=== PATIENT | female | born 1945 | race Caucasian/White ===

== ENCOUNTER 2017-01-02 06:46 | Day surgery (SDC) | payer OTHER, BC ==
[2017-01-01 11:45] VITALS: BMI 35.2
[~2017-01-02 06:46] MED LIST: TOBRAMYCIN/DEXAMETHASONE OPHTH. OINTMENT 1 TUBE TP ONE
[2017-01-02 07:03] VITALS: TEMP 97.7
[2017-01-02] MEDS ORDERED: PHENYLEPHRINE 2.5% OPHTH SOLN 15 ML BOTTLE ONE (07:16)
[2017-01-02] MEDS ORDERED: MOXIFLOXACIN HCL 0.5% OPHTHALMIC 3 ML BOTTLE ONE (07:16)
[2017-01-02] MEDS ORDERED: TROPICAMIDE 1% OPHTH SOLN 15 ML BOTTLE ONE (07:16)
[2017-01-02] MEDS ORDERED: CYCLOPENTOLATE HCL 1% OPHTH SOLN 2 ML BOTTLE ONE (07:16)
[2017-01-02] MEDS ORDERED: TOBRAMYCIN/DEXAMETHASONE OPHTH. OINTMENT 1 TUBE ONE (07:18)
[2017-01-02] MEDS ORDERED: EPINEPHrine/PF 1 MG/1 ML (1:1,000) AMPULE ONE (07:19)
[2017-01-02] MEDS ORDERED: LIDOCAINE HCL/PF 2% SDV 5ML VIAL ONE ×2 (07:19→07:59)
[2017-01-02] MEDS ORDERED: TETRACAINE 0.5% OPHTH SOLN 2 ML BOTTLE ONE (07:19)
[2017-01-02] MEDS ORDERED: POVIDONE-IODINE 5% OPHTHALMIC PREP 30 ML SOLUTION ONE (07:19)
[2017-01-02] MEDS ORDERED: BUPIVACAINE HCL/PF 0.75% 10 ML VIAL ONE (07:19)
[2017-01-02] MEDS: PHENYLEPHRINE 2.5% OPHTH SOLN 15 ML BOTTLE OP SCH ×3 (07:21→07:36)
[2017-01-02] MEDS: MOXIFLOXACIN HCL 0.5% OPHTHALMIC 3 ML BOTTLE OP SCH ×3 (07:21→07:36)
[2017-01-02] MEDS: TROPICAMIDE 1% OPHTH SOLN 15 ML BOTTLE OP SCH ×3 (07:21→07:36)
[2017-01-02] MEDS: CYCLOPENTOLATE HCL 1% OPHTH SOLN 2 ML BOTTLE OP SCH ×3 (07:21→07:35)
[2017-01-02] MEDS ORDERED: TETRACAINE 0.5% HCL 0.6ML DROPPER.BOTTLE TP ONE (07:54)
[2017-01-02] MEDS ORDERED: MIDAZOLAM HCL 2 MG/2 ML SINGLE DOSE VIAL ONE (07:59)
[2017-01-02] MEDS ORDERED: PROPOFOL 20 ML ONE (07:59)
[2017-01-02] MEDS ORDERED: BUPIVACAINE HCL/PF 0.75% 10 ML VIAL RB ONE (08:06)
[2017-01-02] MEDS ORDERED: LIDOCAINE HCL 1% PRESERVATIVE FREE - 30ML VIAL IO ONE ×2 (08:15)
[2017-01-02] MEDS ORDERED: CHONDROITIN SU A/HYALUR SOD 1 KIT IO ONE (08:19)
[2017-01-02] MEDS ORDERED: TOBRAMYCIN/DEXAMETHASONE OPHTH. OINTMENT 1 TUBE TP ONE (08:46)
--- NOTE | 2017-01-02 08:59 | HP ---
History & Physical Update - History History: No Change - Physical Physical: No Change - Assessment Assessment: No Change - Plan Plan: No Change
[2017-01-02 10:04] VITALS: BP 139/60; PULSE 69
--- NOTE | 2017-01-02 11:19 | OP ---
DATE OF OPERATION: 01/02/2017 SURGEON: Juan Medrano MD PREOPERATIVE DIAGNOSIS: Cataract, left eye. OPERATION: Phacoemulsification and intraocular lens implantation, left eye. POSTOPERATIVE DIAGNOSIS: Cataract, left eye. ANESTHESIA: Local with intravenous sedation. COMPLICATIONS: None. BLOOD LOSS: None. SPECIMEN: None. BRIEF HISTORY: The patient is a 71-year-old woman with a past medical history of hypertension, who presented with decreased vision in the left eye down to 20/70- due to a dense 2+ to 3+ nuclear sclerotic lens. After the risks, benefits, and alternatives to cataract surgery were discussed with the patient, she consented to surgery for the left eye. DESCRIPTION OF PROCEDURE: The patient was brought to the operating room and administered retrobulbar block after receiving intravenous sedation. She was then prepped and draped in the usual sterile fashion, and an eyelid speculum was inserted in the left eye. A paracentesis was made, and the anterior chamber was inflated with nonpreserved lidocaine. This was followed by injection of Viscoat. A groove was made in the superotemporal clear cornea which was tunneled forward with a crescent blade. The anterior chamber was entered with a 2.75 keratome. The cystotome was used to make an incision in the center of the capsule, and a continuous curvilinear capsulorrhexis was created. The lens was hydrodissected until it was found to rotate freely within the capsular bag. At this point, there was noted to be some iris prolapse. However, it was limited and did not continue during phacoemulsification. Phacoemulsification was then used to remove the lens in its entirety. Irrigation and aspiration were used to remove residual cortical material. The anterior chamber and capsular bag were reinflated with Provisc, and a 21.5-diopter SN60WF AcrySof intraocular lens was injected into the capsular bag using the Cayuta injector. The lens was dialed into place using a Sinskey hook. Irrigation and aspiration were used to remove residual Viscoelastic. The wound was stromally hydrated until it was found to be watertight. However, the wound continued to not be watertight. One 10-0 nylon suture was placed to the wound. The wound was then found to be watertight, and the eye was at an appropriate pressure. The eyelid speculum was removed from the eye, and TobraDex ointment and a patch and shield were placed over the left eye. The patient was transferred to the recovery room in stable condition and will follow up tomorrow. JUAN MEDRANO M.D. [id number]
== END 2017-01-02 10:04 | disposition home or self-care (01) ==
LOC: JASU-SURG 06:46
PROVIDERS: ATTEND Ophthalmology
PROC: 08RK3JZ Replacement of Left Lens with Synthetic Substitute, Percutaneous Approach (ICD-10-PCS; principal; 2017-01-02 08:00)
DX: H25.12 Age-related nuclear cataract, left eye (principal)

== ENCOUNTER 2017-01-19 08:39 | Day surgery (SDC) | payer OTHER, BC ==
[2017-01-19 08:13] VITALS: BMI 39.4
[2017-01-19] MEDS ORDERED: LIDOCAINE HCL/PF 2% SDV 5ML VIAL ONE (09:24)
[2017-01-19] MEDS ORDERED: PROPOFOL 20 ML ONE ×2 (09:24)
[2017-01-19 10:20] VITALS: TEMP 97.8
[2017-01-19 11:39] VITALS: BP 146/79; PULSE 81
--- NOTE | 2017-01-22 11:33 | PATH ---
Surgical Pathology Report Patient Name: ETHAN VELA [facility]. Rec. #: [id number] /Age/Gender: 1945 (Age: 71) / F Account: [id number] Location: U-ENDOSCOPY Taken: 01/19/2017 Received: 01/19/2017 Reported: 01/22/2017 Physicians: Ericka Green M.D. Specimen(s) Received A: BX DUODENUM B: BX DUODENUM BULB POLYP C: BX ANTRUM D: BX DISTAL MID ESOPHAGUS E: BX SIGMOID POLYP F: BX DESCENDING COLON POLYP Clinical History Occult bleeding, anemia, abdominal pain Sliding hiatal hernia, duodenal bulb polyp, colon polyps, hemorrhoids Final Diagnosis A. DUODENUM, SECOND PORTION, BIOPSY: DUODENAL MUCOSA WITH CHRONIC INFLAMMATION. NO HISTOLOGIC EVIDENCE OF GLUTEN SENSITIVE ENTEROPATHY (CELIAC DISEASE). B. DUODENAL BULB, POLYP, BIOPSY: POLYPOID DUODENAL MUCOSA WITH CHRONIC INFLAMMATION AND EXTENSIVE GASTRIC METAPLASIA MOST CONSISTENT WITH INFLAMED GASTRIC HETEROTOPIA. NEGATIVE FOR DYSPLASIA/ADENOMA. C. STOMACH, ANTRUM, BIOPSY: GASTRIC OXYNTIC MUCOSA WITH MILD CHRONIC GASTRITIS. IMMUNOSTAIN FOR H. PYLORI IS NEGATIVE FOR ORGANISMS. D. ESOPHAGUS, DISTAL/MID, BIOPSY: SQUAMOUS EPITHELIUM WITH CHRONIC INFLAMMATION AND REFLUX TYPE CHANGES. COLUMNAR EPITHELIUM PRESENT (NO INTESTINAL METAPLASIA/MCCORMICK'S ESOPHAGUS IDENTIFIED). NO EVIDENCE OF EOSINOPHILIC ESOPHAGITIS. E. COLON, SIGMOID, BIOPSY: INFLAMED HYPERPLASTIC POLYP. F. COLON, DESCENDING, POLYP, BIOPSY: CONSISTENT WITH INFLAMMATORY/POSTINFLAMMATORY TYPE POLYP. Electronically Signed Sedrick Bravo M.D. Gross Description A. Received in formalin, labeled "biopsy second portion of duodenum" are 3 schaffer, irregular portions of soft tissue measuring 0.2-0.3 cm in greatest dimension. The specimens are submitted in toto in one cassette. B. Received in formalin, labeled "biopsy duodenal bulb polyp" is a schaffer, irregular portion of soft tissue measuring 0.2 cm in greatest dimension. The specimen is submitted in toto in one cassette. C. Received in formalin, labeled "biopsy antrum" are 3 schaffer, irregular portions of soft tissue measuring 0.2-0.5 cm in greatest dimension. The specimens are submitted in toto in one cassette. D. Received in formalin, labeled "biopsy distal mid esophagus" are 3 pieces of kwan tissue measuring 0.2 cm in greatest dimension. The specimens are submitted in toto in one cassette. E. Received in formalin, labeled "biopsy sigmoid polyp" is a schaffer, irregular portion of soft tissue measuring 0.2 cm in greatest dimension. The specimen is submitted in toto in one cassette. F. Received in formalin, labeled "biopsy descending colon polyp" is a schaffer, irregular portion of soft tissue measuring 0.3 cm in greatest dimension. The specimen is submitted in toto in one cassette. [facility]01/19/2017 [facility]01/19/2017
== END 2017-01-19 11:38 | disposition home or self-care (01) ==
LOC: JASU-ENDO 08:39
PROVIDERS: ATTEND Internal Medicine Gastroenterology
PROC: 0DBN8ZX Excision of Sigmoid Colon, Via Natural or Artificial Opening Endoscopic, Diagnostic (ICD-10-PCS; 2017-01-19)
PROC: 0DB98ZX Excision of Duodenum, Via Natural or Artificial Opening Endoscopic, Diagnostic (ICD-10-PCS; 2017-01-19)
PROC: 0DB68ZX Excision of Stomach, Via Natural or Artificial Opening Endoscopic, Diagnostic (ICD-10-PCS; 2017-01-19)
PROC: 0DB58ZX Excision of Esophagus, Via Natural or Artificial Opening Endoscopic, Diagnostic (ICD-10-PCS; 2017-01-19)
PROC: 0DBM8ZX Excision of Descending Colon, Via Natural or Artificial Opening Endoscopic, Diagnostic (ICD-10-PCS; principal; 2017-01-19 09:30)
DX: D64.9 Anemia, unspecified (principal); D12.4 Benign neoplasm of descending colon; D12.5 Benign neoplasm of sigmoid colon; K57.30 Diverticulosis of large intestine without perforation or abscess without bleeding; K64.8 Other hemorrhoids; K31.7 Polyp of stomach and duodenum; K44.9 Diaphragmatic hernia without obstruction or gangrene
CPT/HCPCS: 88305-TC; 88342-TC